=== PATIENT | female | born 1930 | race Caucasian/White ===

== ENCOUNTER 2019-10-23 13:11 | Inpatient (IN) | payer MEDICARE, BC ==
[2019-10-23] MEDS ORDERED: Albuterol Sulfate 2.5 mg/3 ml Neb ONE (13:23)
[2019-10-23] MEDS ORDERED: cefTRIAXone\\ROCEPHIN 1 GM VIAL ONE (13:33)
--- NOTE | 2019-10-23 13:44 | RAD ---
EXAM: CHEST ONE VIEW HISTORY: Shortness of breath. History of recent pneumonia. COMPARISON: None FINDINGS: The cardiac silhouette and pulmonary vasculature are within normal limits. There are emphysematous ch anges seen within the upper lobes with crowding of bronchovascular markings at each lung base and diffuse chronic lung changes. There is mild patchy parenchymal density seen at the left lung base wit h minimal patchy density in the right midlung zone. Findings may be related to bilateral infectious process/pneumonia. There is prominence of the hilar structures which may be related to vascular struc tures, but lymphadenopathy especially on the left versus left hilar mass cannot be entirely excluded. There is diffuse osteopenia. There is irregularity and deformity of the bilateral humeral h eva. Vascular calcifications are seen in the thoracic aorta. IMPRESSION: 1. Patchy airspace opacities at the left lung base and right midlung zone worrisome for pneumonia. Fo llow-up to complete resolution is recommended. 2. Chronic lung changes and evidence of COPD. 3. Nodular prominence left hilar region which is probably related to vascular structures, but lymphad enopathy or mass cannot be entirely excluded. This can also be reevaluated on follow-up exam. 4. Osteopenia with deformity of each humeral head.
[2019-10-23 14:11] LABS: Actual Bicarbonate (HCO3a) 24.5 mEq/L (22-28); Analyzer IN Cardio ER; Base Excess (BEa) -0.6 mEq/L (-2.0 to +3.0); Calcium, Ionized 1.24 mmol/L (1.12-1.30); Carboxyhemoglobin (COHb) 0.3 gm% (0.0-3.0); Hemoglobin (Hb) 10.5 g/dL (12.0-16.0); O2 Tension (PaO2) 64.6 mmHg (> 60.0); Potassium - ABG Lab 3.58 mmol/L (3.70-5.30); pH, Arterial 7.38 (7.35-7.45)
[2019-10-23] MEDS ORDERED: Doxycycline 100 MG CAP PO SCH (14:15)
[2019-10-23 14:17] LABS: Hemoglobin 9.7 g/dL (12.0-16.0); Mean Corpuscular Hemoglobin 31.2 pg (27.0-31.0); Mean Corpuscular Volume 97.7 fL (78.0-98.0); Mean Platelet Volume 8.6 fL (7.4-10.4); Platelet Count 393 thou/uL (130-400); RBC Distribution Width 13.4 % (11.5-14.5)
[2019-10-23 14:21] LABS: Puncture Site RRA
[2019-10-23 14:30] LABS: Band 12 % (5-11); MDiff Complete? YES; Monocytes 7 % (0-10); Neutrophil 81 % (42-75); Nucleated RBC 1 % (0); Platelet Morphology Comment Appears Adequate; Polychromasia SLIGHT = 2-3 cells (100X) (0-2/hpf)
[2019-10-23 14:38] LABS: ALT (SGPT) 25 U/L (8-55); AST (SGOT) 45 U/L (5-34); Albumin 3.4 g/dL (3.4-4.8); Alkaline Phosphatase 109 U/L (40-110); Anion Gap 17 mmol/L (10-20); BUN (Urea Nitrogen) 39 mg/dL (9.8-20.1); Bilirubin, Total 0.6 mg/dL (0.2-1.2); Calc. Creatinine Clearance 0 mL/min (70-130); Calcium 9.8 mg/dL (7.8-10.44); Carbon Dioxide 24 mmol/L (23-31); Chloride 103 mmol/L (98-107); Estimated GFR-MDRD 68; Globulin 3.2 g/dL (2.4-3.5); Glucose 185 mg/dL (83-110); Potassium 3.6 mmol/L (3.5-5.1); Protein, Total 6.6 g/dL (6.0-8.3); Sodium 140 mmol/L (136-145)
[2019-10-23 14:41] LABS: Bilirubin Negative (Negative); Blood, Urine Negative (Negative); Clarity Turbid (Clear); Glucose, Urine (Dipstick) Normal (Negative); Leukocyte Negative Leu/uL (Negative); Nitrite Negative (Negative); Protein, Urine (Dipstick) 50 mg/dL (Neg-Trace); RBC/HPF 0-3 HPF (0-3); Squamous Epithelial 0-3 HPF (0-3); WBC/HPF 0-3 HPF (0-3)
[2019-10-23 14:48] LABS: Bacteria/HPF None Seen HPF (None Seen)
[2019-10-23 15:07] LABS: CKMB 2.5 ng/mL (0-6.6)
[2019-10-23] MEDS ORDERED: Aspirin Chewable 81 MG TAB ONE (16:03)
[2019-10-23] MEDS ORDERED: Ondansetron PF 4 MG/2 ML Vial IVP PRN (16:40)
--- NOTE | 2019-10-23 16:46 | PDOC.HHP ---
Hospitalist HPI - History of Present Illness Shortness of breath History of Present Illness: Ms. Trujillo is an 89 y/o lady with PMH of COPD, HTN, who presents form NH with cough, congestion, and shortness of breath. She reports yesterday to have cough but difficulty producing plegm. She is unsure if had a fever in the halfway. She reportedly was in the halfway after being treated for a pneumonia previously two times. She reportedly has COPD and has placed in NH after having pneumonia in the summer. In the ED, found to be tachypneic, with WBC count of 27k, placed intially on BiPAP, lactic acid of 2.6, CXR suggestive of patchy infiltrate in left lung zone. Hospitalist ROS - Review of Systems Constitutional: denies: fever, chills, sweats, weakness, malaise, other Eyes: denies: pain, vision change, conjunctivae inflammation, eyelid inflammation, redness, other ENT: denies: ear pain, ear discharge, nose pain, nose discharge, nose congestion , mouth pain, mouth swelling, throat pain, throat swelling, other Respiratory: reports: cough, shortness of breath, SOB with excertion. denies: dry, hemoptysis, pleuritic pain, sputum, wheezing, other Cardiovascular: denies: chest pain, palpitations, orthopnea, paroxysmal noc. dyspnea, edema, light headedness, other Gastrointestinal: denies: nausea, vomiting, abdominal pain, diarrhea, constipation, melena, hematochezia, other Genitourinary: denies: dysuria, frequency, incontinence, hematuria, retention, other Musculoskeletal: denies: neck pain, shoulder pain, arm pain, back pain, hand pain, leg pain, foot pain, other Skin: denies: rash, lesions, dary, bruising, other Neurological: denies: weakness, numbness, incoordination, change in speech, confusion, seizures, other Hospitalist History - Past Medical History Cardiac: reports: HTN Pulmonary: reports: COPD, pneumonia [employer] TECHNICIAN: reports: no pertinent history Gastrointestinal: reports: no pertinent history Heme/Onc: reports: no pertinent history Hepatobiliary: reports: no pertinent history Psych: reports: Anxiety Musculoskeletal: reports: no pertinent history Rheumatologic: reports: no pertinent history Infectious Disease: reports: no pertinent history ENT: reports: no pertinent history Renal/: reports: no pertinent history Endocrine: reports: no pertinent history Dermatology: reports: no pertinent history - Past Surgical History Past Surgical History: reports: Appendectomy, Cholecystectomy - Family History Family History: reports: no pertinent history - Social History Smoking Status: Smoker, status unknown Alcohol: reports: None Drugs: reports: none Living Situation: Correction - Exam General Appearance: NAD, awake alert, ill appearing (frail, elderly appearing) Eye: PERRL, anicteric sclera ENT: normocephalic atraumatic, no oropharyngeal lesions, moist mucosa Neck: supple, symmetric, no JVD, no thyromegaly, no lymphadenopathy, no carotid bruit Heart: RRR, no murmur, no gallops, no rubs, normal peripheral pulses Respiratory: no tachypnea, rales, tachypneic (coarse breath sounds ausculated bilaterally) Gastrointestinal: soft, non-tender, non-distended, normal bowel sounds, no palpable masses, no hepatomegaly, no splenomegaly, no bruit Extremities: no cyanosis, no clubbing, no edema Skin: normal turgor, no lesions, no rashes Neurological: cranial nerve grossly intact, normal sensation to touch, no weakness, no focal deficits, no new deficit Musculoskeletal: normal tone, normal strength, no muscle wasting Psychiatric: normal affect, normal behavior, A&O x 3 Hospitalist Results - Labs Result Diagrams: 10/23/19 14:06 10/23/19 14:05 Lab results: WBC 27.0 thou/uL (4.8-10.8) H 10/23/19 14:06 Hgb 9.7 g/dL (12.0-16.0) L 10/23/19 14:06 Hct 30.3 % (36.0-47.0) L 10/23/19 14:06 MCV 97.7 fL (78.0-98.0) 10/23/19 14:06 Plt Count 393 thou/uL (130-400) 10/23/19 14:06 Band Neuts % (Manual) 12 % (5-11) H 10/23/19 14:06 ABG pH 7.38 (7.35-7.45) 10/23/19 14:00 ABG pCO2 42.0 mmHg (35.0-45.0) 10/23/19 14:00 ABG pO2 64.6 mmHg (> 60.0) H 10/23/19 14:00 Sodium 140 mmol/L (136-145) 10/23/19 14:05 Potassium 3.6 mmol/L (3.5-5.1) 10/23/19 14:05 Chloride 103 mmol/L (98-107) 10/23/19 14:05 Carbon Dioxide 24 mmol/L (23-31) 10/23/19 14:05 BUN 39 mg/dL (9.8-20.1) H 10/23/19 14:05 Creatinine 0.80 mg/dL (0.6-1.1) 10/23/19 14:05 Glucose 185 mg/dL (83-110) H 10/23/19 14:05 Lactic Acid 2.6 mmol/L (0.5-2.2) H 10/23/19 14:06 Calcium 9.8 mg/dL (7.8-10.44) 10/23/19 14:05 Total Bilirubin 0.6 mg/dL (0.2-1.2) 10/23/19 14:05 AST 45 U/L (5-34) H 10/23/19 14:05 ALT 25 U/L (8-55) 10/23/19 14:05 Alkaline Phosphatase 109 U/L (40-110) 10/23/19 14:05 CK-MB (CK-2) 2.5 ng/mL (0-6.6) 10/23/19 14:06 Troponin I 0.032 ng/mL (< 0.028) H 10/23/19 14:06 B-Natriuretic Peptide 392.0 pg/mL (0-100) H 10/23/19 14:06 Serum Total Protein 6.6 g/dL (6.0-8.3) 10/23/19 14:05 Albumin 3.4 g/dL (3.4-4.8) 10/23/19 14:05 Urine Ketones Negative mg/dL (Negative) 10/23/19 14:13 Urine Blood Negative (Negative) 10/23/19 14:13 Urine Nitrite Negative (Negative) 10/23/19 14:13 Ur Leukocyte Esterase Negative Smith[place]/uL (Negative) 10/23/19 14:13 Urine RBC 0-3 HPF (0-3) 10/23/19 14:13 Urine WBC 0-3 HPF (0-3) 10/23/19 14:13 Ur Squamous Epith Cells 0-3 HPF (0-3) 10/23/19 14:13 Urine Bacteria None Seen HPF (None Seen) 10/23/19 14:13 - Radiology Interpretation Chest x-ray Status: image reviewed by me, report reviewed by me Hospitalist H&P A/P - Problem (1) Healthcare associated bacterial pneumonia Code(s): J15.9 - UNSPECIFIED BACTERIAL PNEUMONIA Status: Acute (2) COPD exacerbation Code(s): J44.1 - CHRONIC OBSTRUCTIVE PULMONARY DISEASE W (ACUTE) EXACERBATION Status: Acute (3) Hypertension Code(s): I10 - ESSENTIAL (PRIMARY) HYPERTENSION Status: Acute (4) Debility Code(s): R53.81 - OTHER MALAISE Status: Acute (5) Severe sepsis Code(s): A41.9 - SEPSIS, UNSPECIFIED ORGANISM; R65.20 - SEVERE SEPSIS WITHOUT SEPTIC SHOCK Status: Acute (6) Elevated troponin Code(s): R79.89 - OTHER SPECIFIED ABNORMAL FINDINGS OF BLOOD CHEMISTRY Status : Acute Assessment and Plan: due to demand ischemia from sepsis, no formal chest pain - Plan Plan: Admit to telemetry. Likely greater than 2 midnights in evaluation and tx for Severe sepsis/HCAP pneumonia Sepsis procotocol in ED, NS bolus given, continue 100ml/hr. Repeat lactate as per protocol CXR showing LL infiltrate, empiric Vancomycin (dosed as per pharmacy) and Cefepime Follow up blood and sputum culture Continue DuoNebs q4hr Continue [place] Methylpred 40mg IV q8hr for COPD exacerbation Titrate oxygen to 88 to 92%, wean NC accordingly Medication to be reconciled\ DVT Prophyalxis: Lovenox Code Status: DNR, as discussed with patient ACP: Son is vetenarian and is primary decision maker. She wants full treatment for pneumonia. Otherwise DNR if unable to improve or decompensation from illness. Disposition: Admit for pneumonia/sepsis/COPD tx.
--- NOTE | 2019-10-23 17:06 | CT ---
EXAM: CTA of the chest HISTORY: Shortness of breath COMPARISON: None TECHNIQUE: Multiple contiguous axial images were obtained a CTA of the chest with contrast per pulmon faiza embolism protocol. 3-D oblique MIP reformats and direct coronal reformats were performed. FINDINGS: HEART: Normal in size without focal cardiac abnormality. PULMONARY ARTERIES: Normal in caliber without filling defects to suggest pulmonary emboli. MEDIASTINUM: There are enlarged right hilar and mediastinal lymph nodes. Largest lymph node is seen i n the subcarinal location measuring 2.9 cm in size. LUNGS: Severe emphysematous changes are seen in the lungs. Atelectasis versus infiltrate is seen in t he dependent aspect of both lower lobes. PLEURAL SPACE: Small left pleural effusion CHEST WALL SOFT TISSUES: Unremarkable VISUALIZED OSSEOUS STRUCTURES: Degenerative changes in the spine. VISUALIZED SUBDIAPHRAGMATIC STRUCTURES: Unremarkable IMPRESSION: 1. No evidence of pulmonary thromboembolism 2. Bilateral lower lobe atelectasis versus infiltrates with left pleural effusion 3. Severe emphysema 4. Hilar and mediastinal lymphadenopathy is nonspecific and could be secondary to an infectious or ma lignant process.
[2019-10-23 17:45] LABS: Lactic Acid 2.6 mmol/L (0.5-2.2)
[2019-10-23] MEDS: Budesonide 0.5 MG/2 ML NEB INH SCH (19:37)
[2019-10-23] MEDS: Sodium Chloride 0.9% 1,000 ML IV SCH (20:05)
[2019-10-23] MEDS: Vancomycin HCl 750 MG in Sodium Chloride 0.9% 250 ML 250 ML IVPB SCH (20:29)
[2019-10-23] MEDS: Cefepime 2 GM in Sodium Chloride 0.9% 100 ML IVPB SCH (21:55)
[2019-10-23] MEDS: methylPREDNISolone Sod Succ 40 MG VIAL IVP SCH (21:56)
[2019-10-23] MEDS: Acetaminophen 325 MG TAB PO PRN (23:49)
[2019-10-24 05:08] LABS: Anion Gap 13 mmol/L (10-20); BUN (Urea Nitrogen) 28 mg/dL (9.8-20.1); Calc. Creatinine Clearance 44 mL/min (70-130); Calcium 9.4 mg/dL (7.8-10.44); Carbon Dioxide 23 mmol/L (23-31); Chloride 108 mmol/L (98-107); Estimated GFR-MDRD 83; Glucose 149 mg/dL (83-110); Sodium 140 mmol/L (136-145)
[2019-10-24 05:09] LABS: Hemoglobin 9.6 g/dL (12.0-16.0); Mean Corpuscular HGB CONC 31.8 g/dL (32.0-36.0); Mean Corpuscular Hemoglobin 31.5 pg (27.0-31.0); Mean Corpuscular Volume 99.1 fL (78.0-98.0); Mean Platelet Volume 8.8 fL (7.4-10.4); Platelet Count 360 thou/uL (130-400); RBC Distribution Width 13.4 % (11.5-14.5); Red Blood Cell (RBC) Count 3.04 mill/uL (4.20-5.40); White Blood Cell (WBC) Count 31.6 thou/uL (4.8-10.8)
[2019-10-24 05:10] LABS: Band 24 % (5-11); Elliptocytes SLIGHT = 2-5 cells (100X) (0-1/hpf); Hypochromia SLIGHT = 6-15 cells (100X) (0-5/hpf); MDiff Complete? YES; Monocytes 2 % (0-10); Neutrophil 74 % (42-75); Platelet Morphology Comment Appears Adequate
[2019-10-24] MEDS: methylPREDNISolone Sod Succ 40 MG VIAL IVP SCH ×3 (05:29→21:57)
[2019-10-24] MEDS: Sodium Chloride 0.9% 1,000 ML IV SCH ×3 (05:30→17:54)
[2019-10-24] MEDS: Budesonide 0.5 MG/2 ML NEB INH SCH ×2 (07:54→19:32)
[2019-10-24] MEDS: Cefepime 2 GM in Sodium Chloride 0.9% 100 ML IVPB SCH ×2 (08:48→21:57)
[2019-10-24] MEDS: Enoxaparin Sodium 40 MG/0.4 ML SYRINGE SC SCH (08:48)
[2019-10-24] MEDS ORDERED: Benzonatate 100 MG CAP PO PRN (12:00)
--- NOTE | 2019-10-24 12:16 | PDOC.HOSPP ---
- Subjective Encounter Date: 10/24/19 (f/u pneumonia) Encounter Time: 12:15 Subjective: Pt reports her breathing is feeling a little better today. Denies any chest pain, n/v/abd pain. Pt c/o nose feeling sore and she uses an ointment at home for it - does not know the name. - Objective Vital Signs & Weight: Vital Signs (12 hours) Temp Pulse Resp BP Pulse Ox 10/24/19 11:04 98.3 F 90 20 140/68 88 L 10/24/19 07:54 89 20 10/24/19 07:43 88 L 10/24/19 07:31 97.7 F 92 19 141/81 H 88 L 10/24/19 03:17 97.8 F 89 20 123/65 87 L 10/24/19 00:44 90 L Weight Weight 106 lb I&O: 10/23/19 10/24/19 10/25/19 06:59 06:59 06:59 Intake Total 1600 Output Total 400 Balance 1200 Result Diagrams: 10/24/19 04:27 10/24/19 04:27 EKG Reviewed by me: Yes (tele - sinus 80's, pvc's) Hospitalist ROS - Medication Medications: Active Medications Generic Name Dose Route Start Last Admin Trade Name Freq PRN Reason Stop Dose Admin Acetaminophen 650 mg 10/23/19 16:40 10/23/19 23:49 Tylenol PO 650 mg Q4H PRN Administration Headache/Fever/Mild Pain (1-3) Albuterol/Ipratropium 3 ml 10/23/19 19:00 10/24/19 07:54 Duoneb NEB 3 ml [id number] HILARIO Administration Budesonide 0.5 mg 10/23/19 18:30 10/24/19 07:54 Pulmicort Neb Solution INH 0.5 mg BID-RT HILARIO Administration Enoxaparin Sodium 40 mg 10/24/19 09:00 10/24/19 08:48 Lovenox SC 40 mg 0900 HILARIO Administration Cefepime HCl 2 gm/ Sodium 100 mls @ 200 mls/hr 10/23/19 21:00 10/24/19 08:48 Chloride IVPB 100 mls Q12HR HILARIO Administration Vancomycin HCl 750 mg/ Sodium 250 mls @ 250 mls/hr 10/23/19 20:00 10/23/19 20 :29 Chloride IVPB 250 mls 2000 HILARIO Administration Sodium Chloride 1,000 mls @ 100 mls/hr 10/23/19 16:40 10/24/19 12:05 Normal Saline 0.9% IV Not Given .Q10H HILARIO Methylprednisolone Sodium Succinate 40 mg 10/23/19 22:00 10/24/19 05:29 Solu-Medrol IVP 40 mg Q8HR HILARIO Administration - Exam General Appearance: NAD General - other findings: cachectic appearing Heart: RRR, no murmur Respiratory: no wheezes, no rales, no ronchi Respiratory - other findings: poor air movement, some accessory muscle use, Extremities: no cyanosis, no clubbing, no edema Psychiatric: normal affect Hosp A/P (1) Healthcare associated bacterial pneumonia Code(s): J15.9 - UNSPECIFIED BACTERIAL PNEUMONIA Status: Acute (2) COPD exacerbation Code(s): J44.1 - CHRONIC OBSTRUCTIVE PULMONARY DISEASE W (ACUTE) EXACERBATION Status: Acute (3) Dyslipidemia Code(s): E78.5 - HYPERLIPIDEMIA, UNSPECIFIED Status: Chronic (4) Hypertension Code(s): I10 - ESSENTIAL (PRIMARY) HYPERTENSION Status: Chronic Qualifiers: Hypertension type: essential hypertension Qualified Code(s): I10 - Essential (primary) hypertension (5) Severe sepsis Code(s): A41.9 - SEPSIS, UNSPECIFIED ORGANISM; R65.20 - SEVERE SEPSIS WITHOUT SEPTIC SHOCK Status: Acute - Plan HCAP and COPD exac - continue broad spectrum abx - follow cx - continue IV steroids for now - transition to oral as improved - daily PPI nasal saline to nose Resume selective home meds add scheduled bowel med and prn med dvt prophy - lovenox gi prophy - on PPI at home - continue code status DNAR reviewed plan of care with patient/son, no questions or further needs at end of eval Addendum - pt/son d/w nurse that pt is anxious, used to be on fluoxetine 20 mg daily for this but it was stopped in the past. They are requesting that it is restarted. Will order this as well as prn low dose alprazolam for anxiety.
[2019-10-24] MEDS ORDERED: Polyethylene Glycol 3350 17 GM Packet PO PRN (12:19)
[2019-10-24] MEDS ORDERED: Docusate 100 MG CAP PO SCH ×2 (12:45→21:00)
[2019-10-24] MEDS: Acetaminophen 325 MG TAB PO PRN (12:56)
[2019-10-24] MEDS: Atorvastatin Calcium 10 MG TAB PO SCH (20:55)
[2019-10-24] MEDS: guaiFENesin ER 600 MG TAB PO SCH (20:55)
[2019-10-24] MEDS: Vancomycin HCl 750 MG in Sodium Chloride 0.9% 250 ML 250 ML IVPB SCH (20:56)
[2019-10-24] MEDS: FlunisoLIDE 0.025% Nasal Spray 25 ml Bottle EA NARE SCH (20:56)
[2019-10-24] MEDS: ALPRAZolam 0.25 MG TAB PO PRN (20:57)
[2019-10-25] MEDS: Sodium Chloride 0.9% 1,000 ML IV SCH ×2 (04:16→07:59)
[2019-10-25 05:05] LABS: Anion Gap 10 mmol/L (10-20); BUN (Urea Nitrogen) 30 mg/dL (9.8-20.1); Calc. Creatinine Clearance 45 mL/min (70-130); Calcium 9.5 mg/dL (7.8-10.44); Carbon Dioxide 26 mmol/L (23-31); Chloride 111 mmol/L (98-107); Estimated GFR-MDRD 85; Glucose 143 mg/dL (83-110); Sodium 143 mmol/L (136-145)
[2019-10-25 05:38] LABS: Band 11 % (5-11); Elliptocytes SLIGHT = 2-5 cells (100X) (0-1/hpf); Hemoglobin 9.5 g/dL (12.0-16.0); MDiff Complete? YES; Mean Corpuscular HGB CONC 31.7 g/dL (32.0-36.0); Mean Corpuscular Hemoglobin 31.5 pg (27.0-31.0); Mean Corpuscular Volume 99.2 fL (78.0-98.0); Mean Platelet Volume 8.8 fL (7.4-10.4); Monocytes 7 % (0-10); Neutrophil 82 % (42-75); Platelet Count 382 thou/uL (130-400); Platelet Morphology Comment Appears Adequate; RBC Distribution Width 13.3 % (11.5-14.5); Red Blood Cell (RBC) Count 3.03 mill/uL (4.20-5.40); White Blood Cell (WBC) Count 24.9 thou/uL (4.8-10.8)
[2019-10-25] MEDS: methylPREDNISolone Sod Succ 40 MG VIAL IVP SCH ×3 (05:58→21:22)
[2019-10-25] MEDS: Budesonide 0.5 MG/2 ML NEB INH SCH ×2 (06:55→19:18)
[2019-10-25] MEDS: Enoxaparin Sodium 40 MG/0.4 ML SYRINGE SC SCH (07:46)
[2019-10-25] MEDS: Cefepime 2 GM in Sodium Chloride 0.9% 100 ML IVPB SCH ×2 (07:46→21:21)
[2019-10-25] MEDS: Aspirin 81 mg Enteric Coated Tablet PO SCH (07:47)
[2019-10-25] MEDS: FLUoxetine HCl 20 MG CAP PO SCH (07:47)
[2019-10-25] MEDS: guaiFENesin ER 600 MG TAB PO SCH ×2 (07:47→20:12)
[2019-10-25] MEDS: FlunisoLIDE 0.025% Nasal Spray 25 ml Bottle EA NARE SCH ×2 (07:58→20:07)
[2019-10-25] MEDS: Artificial Tears 18 DROP/0.9 ML EA EYE SCH (08:58)
[2019-10-25] MEDS ORDERED: Losartan 25 MG TAB PO SCH (10:45)
[2019-10-25] MEDS ORDERED: Amlodipine 5 MG TAB PO SCH (10:45)
--- NOTE | 2019-10-25 10:51 | PDOC.HOSPP ---
- Subjective Encounter Date: 10/25/19 (f/u COPD exacerbation) Encounter Time: 10:48 Subjective: Pt c/o not having a bm today. Denies n/v. States her breathing is about the same , feels uncomfortable, having a more productive cough. - Objective Vital Signs & Weight: Vital Signs (12 hours) Temp Pulse Resp BP Pulse Ox 10/25/19 07:34 96.8 F L 88 22 H 143/85 H 88 L 10/25/19 06:56 91 L 10/25/19 06:55 84 16 10/25/19 04:05 98.4 F 79 16 161/85 H 90 L 10/25/19 00:29 92 L 10/24/19 23:18 97.3 F L 88 14 147/65 H 90 L Weight Admit Weight 106 lb Weight 114 lb 9.6 oz I&O: 10/24/19 10/25/19 10/26/19 06:59 06:59 06:59 Intake Total 1600 3340 Output Total 400 750 Balance 1200 2590 Result Diagrams: 10/25/19 04:20 10/25/19 04:20 EKG Reviewed by me: Yes (tele - sinus 80's with aberrant beats.) Hospitalist ROS - Medication Medications: Active Medications Generic Name Dose Route Start Last Admin Trade Name Freq PRN Reason Stop Dose Admin Acetaminophen 650 mg 10/23/19 16:40 10/24/19 12:56 Tylenol PO 650 mg Q4H PRN Administration Headache/Fever/Mild Pain (1-3) Albuterol/Ipratropium 3 ml 10/23/19 19:00 10/25/19 06:55 Duoneb NEB 3 ml [id number] HILARIO Administration Alprazolam 0.25 mg 10/24/19 14:25 10/24/19 20:57 Xanax PO 0.25 mg BIDPRN PRN Administration Anxiety Artificial Tears 1 drop 10/25/19 09:00 10/25/19 08:58 Tears Naturale EA EYE 1 drop DAILY HILARIO Administration Aspirin 81 mg 10/25/19 09:00 10/25/19 07:47 Ecotrin PO 81 mg DAILY HILARIO Administration Atorvastatin Calcium 10 mg 10/24/19 21:00 10/24/19 20:55 Lipitor PO 10 mg HS HILARIO Administration Benzonatate 100 mg 10/24/19 12:00 10/24/19 12:56 Tessalon PO 100 mg Q8H PRN Administration Cough Budesonide 0.5 mg 10/23/19 18:30 10/25/19 06:55 Pulmicort Neb Solution INH 0.5 mg BID-RT HILARIO Administration Enoxaparin Sodium 40 mg 10/24/19 09:00 10/25/19 07:46 Lovenox SC 40 mg 0900 HILARIO Administration Flunisolide 2 sprays 10/24/19 21:00 10/25/19 07:58 Nasalide 0.025% EA NARE 2 sprays BID HILARIO Administration Fluoxetine HCl 20 mg 10/25/19 09:00 10/25/19 07:47 Prozac PO 20 mg DAILY HILARIO Administration Guaifenesin 600 mg 10/24/19 21:00 10/25/19 07:47 Mucinex PO 600 mg BID HILARIO Administration Cefepime HCl 2 gm/ Sodium 100 mls @ 200 mls/hr 10/23/19 21:00 10/25/19 07:46 Chloride IVPB 100 mls Q12HR HILARIO Administration Vancomycin HCl 750 mg/ Sodium 250 mls @ 250 mls/hr 10/23/19 20:00 10/24/19 20 :56 Chloride IVPB 250 mls 2000 HILARIO Administration Methylprednisolone Sodium Succinate 40 mg 10/23/19 22:00 10/25/19 05:58 Solu-Medrol IVP 40 mg Q8HR HILARIO Administration Pantoprazole Sodium 40 mg 10/25/19 09:00 10/25/19 07:47 Protonix PO 40 mg DAILY HILARIO Administration - Exam General Appearance: NAD Heart: RRR, no murmur Respiratory - other findings: slightly improved air movement but still poor, no audible w/r/r Gastrointestinal: soft, non-tender, non-distended, normal bowel sounds Extremities: no cyanosis, no clubbing, no edema Psychiatric: normal affect Hosp A/P (1) Healthcare associated bacterial pneumonia Code(s): J15.9 - UNSPECIFIED BACTERIAL PNEUMONIA Status: Acute (2) COPD exacerbation Code(s): J44.1 - CHRONIC OBSTRUCTIVE PULMONARY DISEASE W (ACUTE) EXACERBATION Status: Acute (3) Dyslipidemia Code(s): E78.5 - HYPERLIPIDEMIA, UNSPECIFIED Status: Chronic (4) Hypertension Code(s): I10 - ESSENTIAL (PRIMARY) HYPERTENSION Status: Chronic Qualifiers: Hypertension type: essential hypertension Qualified Code(s): I10 - Essential (primary) hypertension (5) Severe sepsis Code(s): A41.9 - SEPSIS, UNSPECIFIED ORGANISM; R65.20 - SEVERE SEPSIS WITHOUT SEPTIC SHOCK Status: Acute - Plan HCAP and COPD exac - continue broad spectrum abx - follow cx - continue IV steroids for now - transition to oral as improved - possibly tomorrow - daily PPI nasal saline to nose Resume selective home meds add scheduled bowel med and prn med - RN to take her a dose of miralax and lactulose now d/c IVF check echo given severe copd - to see if this is contributing to dyspnea. Pt is not on a beta-iwona HTN - resume home amlodipine and losartan (dose lowered) anxiety - continue prozac and prn low dose alprazolam dvt prophy - lovenox gi prophy - on PPI at home - continue code status DNAR reviewed plan of care with patient/[id number], no questions or further needs at end of eval pt remains at high risk in current presentation Addendum - blood culture - one set with gram positive cocci. Resp cx - gram neg herminio and Staph Aureus
[2019-10-25] MEDS: Vancomycin HCl 750 MG in Sodium Chloride 0.9% 250 ML 250 ML IVPB SCH (20:07)
[2019-10-25] MEDS: Atorvastatin Calcium 10 MG TAB PO SCH (20:12)
[2019-10-25] MEDS: ALPRAZolam 0.25 MG TAB PO PRN (20:12)
[2019-10-25] MEDS: Acetaminophen 325 MG TAB PO PRN (20:12)
[2019-10-26 05:05] VITALS: BMI 23.8
[2019-10-26 05:06] LABS: Anion Gap 9 mmol/L (10-20); BUN (Urea Nitrogen) 38 mg/dL (9.8-20.1); Calc. Creatinine Clearance 46 mL/min (70-130); Calcium 9.6 mg/dL (7.8-10.44); Carbon Dioxide 25 mmol/L (23-31); Chloride 112 mmol/L (98-107); Estimated GFR-MDRD 72; Glucose 156 mg/dL (83-110); Potassium 4.3 mmol/L (3.5-5.1); Sodium 142 mmol/L (136-145)
[2019-10-26 05:15] LABS: Band 6 % (5-11); Hemoglobin 9.7 g/dL (12.0-16.0); Lymphocytes 1 % (21-51); MDiff Complete? YES; Mean Corpuscular HGB CONC 31.1 g/dL (32.0-36.0); Mean Corpuscular Hemoglobin 31.1 pg (27.0-31.0); Mean Platelet Volume 8.6 fL (7.4-10.4); Monocytes 2 % (0-10); Neutrophil 91 % (42-75); Platelet Count 394 thou/uL (130-400); Platelet Morphology Comment Appears Adequate; RBC Distribution Width 13.4 % (11.5-14.5); Red Blood Cell (RBC) Count 3.12 mill/uL (4.20-5.40); White Blood Cell (WBC) Count 21.2 thou/uL (4.8-10.8)
[2019-10-26] MEDS: methylPREDNISolone Sod Succ 40 MG VIAL IVP SCH ×2 (05:41→14:38)
[2019-10-26] MEDS: Budesonide 0.5 MG/2 ML NEB INH SCH ×2 (07:31→18:50)
[2019-10-26] MEDS: guaiFENesin ER 600 MG TAB PO SCH ×2 (08:31→21:20)
[2019-10-26] MEDS: Losartan 25 MG TAB PO SCH (08:31)
[2019-10-26] MEDS: Aspirin 81 mg Enteric Coated Tablet PO SCH (08:31)
[2019-10-26] MEDS: Enoxaparin Sodium 40 MG/0.4 ML SYRINGE SC SCH (08:31)
[2019-10-26] MEDS: Amlodipine 5 MG TAB PO SCH (08:32)
[2019-10-26] MEDS: Cefepime 2 GM in Sodium Chloride 0.9% 100 ML IVPB SCH ×2 (08:32→22:01)
[2019-10-26] MEDS: FLUoxetine HCl 20 MG CAP PO SCH (08:32)
[2019-10-26] MEDS: Artificial Tears 18 DROP/0.9 ML EA EYE SCH (08:34)
[2019-10-26] MEDS: FlunisoLIDE 0.025% Nasal Spray 25 ml Bottle EA NARE SCH ×2 (08:34→22:01)
--- NOTE | 2019-10-26 10:37 | PDOC.HOSPP ---
- Subjective Encounter Date: 10/26/19 Encounter Time: 11:40 Subjective: Patient with severe SOB, hypoxia, decreased responsiveness. Code Green called. Patient responded to high flow O2 and more responsive now. Being transfered to the [facility]. Family ok with trying BiPAP if necessary, but otherwise DNAR. - Objective Vital Signs & Weight: Vital Signs (12 hours) Temp Pulse Resp BP Pulse Ox 10/26/19 08:29 97.2 F L 73 22 H 150/70 H 89 L 10/26/19 07:31 79 16 90 L 10/26/19 03:43 97.4 F L 96 25 H 149/67 H 96 10/26/19 01:21 90 L Weight Admit Weight 106 lb Weight 125 lb 12.8 oz I&O: 10/25/19 10/26/19 10/27/19 06:59 06:59 06:59 Intake Total 3340 350 Output Total 750 200 Balance 2590 150 Result Diagrams: 10/26/19 04:15 10/26/19 04:15 Hospitalist ROS - Review of Systems Constitutional: denies: fever, chills Respiratory: reports: shortness of breath. denies: cough Cardiovascular: denies: chest pain, palpitations Gastrointestinal: denies: nausea, vomiting, abdominal pain - Medication Medications: Active Medications Generic Name Dose Route Start Last Admin Trade Name Freq PRN Reason Stop Dose Admin Acetaminophen 650 mg 10/23/19 16:40 10/25/19 20:12 Tylenol PO 650 mg Q4H PRN Administration Headache/Fever/Mild Pain (1-3) Albuterol/Ipratropium 3 ml 10/23/19 19:00 10/26/19 07:34 Duoneb NEB 3 ml [id number] HILARIO Administration Alprazolam 0.25 mg 10/24/19 14:25 10/25/19 20:12 Xanax PO 0.25 mg BIDPRN PRN Administration Anxiety Amlodipine Besylate 5 mg 10/26/19 09:00 10/26/19 08:32 Norvasc PO 5 mg DAILY HILARIO Administration Artificial Tears 1 drop 10/25/19 09:00 10/26/19 08:34 Tears Naturale EA EYE 1 drop DAILY HILARIO Administration Aspirin 81 mg 10/25/19 09:00 10/26/19 08:31 Ecotrin PO 81 mg DAILY HILARIO Administration Atorvastatin Calcium 10 mg 10/24/19 21:00 10/25/19 20:12 Lipitor PO 10 mg HS HILARIO Administration Benzonatate 100 mg 10/24/19 12:00 10/24/19 12:56 Tessalon PO 100 mg Q8H PRN Administration Cough Budesonide 0.5 mg 10/23/19 18:30 10/26/19 07:31 Pulmicort Neb Solution INH 0.5 mg BID-RT HILARIO Administration Enoxaparin Sodium 40 mg 10/24/19 09:00 10/26/19 08:31 Lovenox SC 40 mg 0900 HILARIO Administration Flunisolide 2 sprays 10/24/19 21:00 10/26/19 08:34 Nasalide 0.025% EA NARE 2 sprays BID HILARIO Administration Fluoxetine HCl 20 mg 10/25/19 09:00 10/26/19 08:32 Prozac PO 20 mg DAILY HILARIO Administration Guaifenesin 600 mg 10/24/19 21:00 10/26/19 08:31 Mucinex PO 600 mg BID HILARIO Administration Cefepime HCl 2 gm/ Sodium 100 mls @ 200 mls/hr 10/23/19 21:00 10/26/19 08:32 Chloride IVPB 100 mls Q12HR HILARIO Administration Vancomycin HCl 750 mg/ Sodium 250 mls @ 250 mls/hr 10/23/19 20:00 10/25/19 20 :07 Chloride IVPB 250 mls 2000 HILARIO Administration Lactulose 20 gm 10/24/19 12:19 10/25/19 11:10 Lactulose PO 20 gm DAILYPRN PRN Administration Constipation Losartan Potassium 50 mg 10/26/19 09:00 10/26/19 08:31 Cozaar PO 50 mg DAILY HILARIO Administration Methylprednisolone Sodium Succinate 40 mg 10/23/19 22:00 10/26/19 05:41 Solu-Medrol IVP 40 mg Q8HR HILARIO Administration Pantoprazole Sodium 40 mg 10/25/19 09:00 10/26/19 08:32 Protonix PO 40 mg DAILY HILARIO Administration - Exam General Appearance: ill appearing Eye: anicteric sclera ENT: moist mucosa Heart: RRR, no murmur, no gallops, no rubs Respiratory: no rales, no ronchi, tachypneic, wheezes Gastrointestinal: soft, non-tender, non-distended, normal bowel sounds Psychiatric - other findings: very hard of hearing, unable to test orientation well due to this Hosp A/P (1) Healthcare associated bacterial pneumonia Code(s): J15.9 - UNSPECIFIED BACTERIAL PNEUMONIA Status: Acute (2) MRSA bacteremia Code(s): R78.81 - BACTEREMIA Status: Acute (3) COPD exacerbation Code(s): J44.1 - CHRONIC OBSTRUCTIVE PULMONARY DISEASE W (ACUTE) EXACERBATION Status: Acute (4) Dyslipidemia Code(s): E78.5 - HYPERLIPIDEMIA, UNSPECIFIED Status: Chronic (5) Hypertension Code(s): I10 - ESSENTIAL (PRIMARY) HYPERTENSION Status: Chronic Qualifiers: Hypertension type: essential hypertension Qualified Code(s): I10 - Essential (primary) hypertension (6) Severe sepsis Code(s): A41.9 - SEPSIS, UNSPECIFIED ORGANISM; R65.20 - SEVERE SEPSIS WITHOUT SEPTIC SHOCK Status: Acute (7) Acute and chronic respiratory failure with hypoxia Code(s): J96.21 - ACUTE AND CHRONIC RESPIRATORY FAILURE WITH HYPOXIA Status: Acute - Plan continue antibiotics, PT/OT, respiratory therapy HCAP and COPD exac - continue broad spectrum abx - MRSA in blood and sputum- on vanc. will have pharmacy dose - continue IV steroids for now - transition to oral as improved - still with high O2 requirement - daily PPI Acute on chronic respiratory failure with hypoxia - Patient found unresponsive with O2 sat 50s this AM, improved with nonrebreather, BP/pulse stable. Son ok with BiPAP so patient transfered to [facility] for bipap, still DNR otherwise nasal saline to nose Resume selective home meds add scheduled bowel med and prn med - RN to take her a dose of miralax and lactulose now d/c IVF ECHO with normal EF HTN - resume home amlodipine and losartan (dose lowered) anxiety - continue prozac and prn low dose alprazolam dvt prophy - lovenox gi prophy - on PPI at home - continue code status DNAR Patient remains critically ill and high chance of decompensation and reviewed plan of care with patient/family at bedside, no questions or further needs at end of eval
[2019-10-26] MEDS: ALPRAZolam 0.25 MG TAB PO PRN (12:40)
--- NOTE | 2019-10-26 14:36 | PQF ---
[place] RICH, JASWANT ROSS MD [id number] [facility]- B03 [id number] CLINICAL DOCUMENTATION IMPROVEMENT CLARIFICATION FORM: ICD-10 Updated PLEASE DO AN ADDENDUM TO THE PROGRESS NOTE WITH ANY DOCUMENTATION UPDATES OR ADDITIONS AND CARRY THROUGH TO DC SUMMARY. THANK YOU. DATE: 10/26/2019 ATTN: DR. Catracho WING Please exercise your independent, professional judgment in responding to the clarification form. Clinical indicators are provided on the bottom of this form for your review. Please check appropriate box(s): [ X ] Acute On Chronic Respiratory Failure: [ X ] with Hypoxia [ ] with Hypercapnia [ ] Acute Respiratory Failure due to: (etiology) [ ] Chronic Respiratory Failure only [ ] with Hypoxia [ ] with Hypercapnia [ ] OTHER [ ] Unable to determine In addition, please specify: Present on Admission (POA): [ X ] Yes [ ] No [ ] Unable to determine For continuity of documentation, please document condition throughout progress notes and discharge summary. Thank You. CLINICAL INDICATORS - SIGNS / SYMPTOMS / LABS / RESULTS AND LOCATION IN 10/23 ED REPORT: PT PRESENTED TO ED VIA EMS FOR SOB, LOW O2 SATURATION,PT REQUIRING INCREASED SUPPLEMENTAL O2 SUPPORT. PMH SIGNIFICANT FOR COPD ON 3L/NC DAILY. RECEIVED 6 DUONEB, TWO IN ROUTE TO ED; FINAL ED PHYSICIAN DX: PNA, COPD EXACERBATION 10/24 O2 SAT 88-94% ON 4-4.5 L/NC 10/25 O2 SAT 88-92% ON 4-4.5 L/NC 10/26 O2 SAT 89-96% ON 4.5-5.0 L/NC RISK: ADVANCED AGE ( 89) DX OF COPD EXACERBATION, DX BACTERIAL PNEUMONIA,SEVERE SEPSIS (H&P/ KRISTIE) TREATMENTS: SUPPLEMENTAL OXYGEN (10/23-PRESENT) CONTINUOUS TELEMETRY MONITORING ( 10/23-PRESENT) Acute Respiratory Failure: ABG pH < 7.35 or > 7.45; Decreased oxygen saturation (<90% room air or < 95% on oxygen); PCO2 > 50 mm Hg; PO2 < 60 mm Hg; Labored or rapid respirations ARDS: Dx Criteria [[place] ARDS]: Respiratory symptoms within one week of a known clinical insult (e.g. shock, infection, surgery, trauma) Bilateral opacities in CXR/Chest CT not due to CHF or fluid THANK YOU! FRANCISCO (This form is maintained as a part of the permanent medical record) 2015 [employer] All Rights Reserved [email or web address] [phone] MTDD
[2019-10-26] MEDS ORDERED: Furosemide 40 MG/4 ML VIAL SLOW IVP SCH (15:15)
--- NOTE | 2019-10-26 16:39 | CON ---
DATE OF CONSULTATION: 10/26/2019 SERVICE: Pulmonary Medicine. REASON FOR CONSULTATION: [facility] patient. HISTORY OF PRESENT ILLNESS: The patient is an 89-year-old white female with a past medical history significant for COPD and advanced emphysema. She is on oxygen at home. Recently, she was doing poorly in [place]. Her family moved her here to get closer, but when she stopped having moved around, she relies completely on her family and got to the point, where she had a hard time moving about. She needed significant assistance. It was more than family could provide and she was subsequently placed in a correction about a month ago. At that location, she has had a fairly dramatic deterioration in function. She can get out of bed into a wheelchair with significant assistance. She can then use the wheelchair to get around on her own. That being said, minimal activity causes severe shortness of breath and so she more or less avoided altogether. She was doing well until right around . At that point, she started having increasing shortness of breath and cough. She was brought to the Emergency Department and identified as having bilateral pneumonia in an aspiration distribution. She was placed in the hospital on the . She was given antibiotics for the last 2 days, but developed increasing respiratory failure and hypoxemia. She was a subject of a code green. She was subsequently transitioned out of the telemetry unit to the [facility]. High- flow nasal cannula was placed. The patient is deaf and has a hard time understanding anything that I am saying or requesting. She spends much of the time breathing. She does not appear to be in any distress. Otherwise, there has been no interval change to her condition. PAST MEDICAL HISTORY: 1. COPD. 2. Chronic hypoxic respiratory failure. 3. Hypertension. 4. Anxiety disorder. 5. Gastroesophageal reflux disease. 6. Osteoarthritis. PAST SURGICAL HISTORY: 1. Appendectomy. 2. Cholecystectomy. FAMILY HISTORY: Noncontributory. SOCIAL HISTORY: She smoked a pack of cigarettes on a daily basis for over 50 years. She quit 15 years ago. She has no exposure to chemicals, dust, asbestos, or tuberculosis otherwise. ALLERGIES: NO KNOWN DRUG ALLERGIES. MEDICATIONS: List of her inpatient medications was reviewed. No updates were made at this time. REVIEW OF SYSTEMS: This cannot be obtained because the patient has severe deafness. PHYSICAL EXAMINATION: VITAL SIGNS: Afebrile, pulse 92, blood pressure 146/63, respirations 19, and saturation 92% on 50% oxygen delivered via high-flow nasal cannula. GENERAL: The patient is awake and alert, in no apparent distress. LUNGS: Reduced air entry. No prolonged expiratory phase is present. There are rhonchi, crackles, and wheezing all present. HEART: Normal rate. Regular. ABDOMEN: Soft, nontender, and nondistended. Bowel sounds are positive. MUSCULOSKELETAL: No cyanosis or clubbing. There are trace pitting in the bilateral lower extremities. NEUROLOGIC: Grossly nonfocal. LABORATORY DATA: WBC 21.2 and downtrending, hemoglobin 9.7 and stable, and platelets 394,000. A pH of 7.38, pCO2 of 42, and pO2 of 65. Creatinine 0.76. BUN 38. Basic metabolic profile is otherwise unremarkable, sodium 142. Urinalysis is unremarkable. Sputum is growing MRSA as well as Pseudomonas aeruginosa. Sensitivities on the Pseudomonas are currently pending. Blood culture is growing Staph aureus in 1 out of 2. Urine cultures negative to-date. Influenza A and B are unremarkable. IMAGIN. Echocardiogram demonstrates a preserved ejection fraction, moderate mitral regurgitation. 2. CTA of the chest demonstrates no evidence of a pulmonary embolism. There is horrendous emphysematous changes throughout bilateral lung moreno and bibasilar consolidating changes. I do not appreciate much in the way of an effusion. ASSESSMENT: 1. Acute on chronic hypoxic respiratory failure. 2. Chronic obstructive pulmonary disease with acute exacerbation. 3. Health care associated pneumonia, likely secondary to aspiration related disease. 4. Debility, fairly advanced. DISCUSSION AND PLAN: We will continue supportive care including steroids, antibiotics, and nebulized medications. I will introduce a dose of Lasix now and tomorrow morning. Steroids will be de-escalated to once daily. Broad-spectrum antibiotics will be continued for the time being. We will need to follow up on the sensitivities of the Pseudomonas. Cough suppressing medications like Tessalon Perles will be interrupted. This patient remains critically ill. If things get worse, she will be unlikely to survive this hospital stay. The patient's family seems to be fairly appreciative of our current situation. 70 minutes have been devoted to this patient in various activities. I personally reviewed all imaging studies and laboratory data noted within this document. For fifty percent of this time, I was interacting with the patient at the bedside or coordinating care with the care team. For the remainder of the time I was immediately available to the patient in the hospital unit. Job ID: [id number] MTDD
[2019-10-26] MEDS ORDERED: Vancomycin HCl 750 MG in Sodium Chloride 0.9% 250 ML 250 ML IVPB SCH (18:00)
[2019-10-26 18:45] VITALS: BP 103/52
[2019-10-26] MEDS: Atorvastatin Calcium 10 MG TAB PO SCH (21:20)
--- NOTE | 2019-10-26 21:30 | CON ---
DATE OF CONSULTATION: 10/26/2019 REASON FOR CONSULTATION: Bacteremia, pneumonia. HISTORY OF PRESENT ILLNESS: An 89-year-old first admission to [facility] who has a longstanding history of COPD, prior smoking and oxygen dependency in the home setting for many years now. The patient had been living in [place] and family brought her over here, because of her needing more assistance for care. The patient had to be admitted to a local correction and the plan was to keep her in the correction. Recently, she had an episode of pneumonia treated with Rocephin and Augmentin at the correction with improvement and then now worsening cough. She had some fever as well as recurrence. Initial findings included blood pressure of 117/74, pulse 105, temperature 97.7, respiratory rate 23, O2 saturation 95 on a BiPAP mask. The exam showed a frail elderly woman, tachypneic and uncomfortable at rest. There was evidence of wheezing, both right and left hemithorax. Breath sounds were diminished in the left lower lobe base. Her initial impression was pneumonia with leukocytosis. The patient has chest CT, which showed bibasilar infiltrates. The patient was given vancomycin and cefepime and now we have one set of blood cultures with MRSA, also with MRSA and sputum together with Pseudomonas aeruginosa, moderate gram-positive cocci in clusters in the Gram stain. Currently, Ms. Trujillo is obtunded. She will open her eyes intermittently, but does not answer questions. She obviously has some hearing impairment. She has not had any diarrhea, no seizure activity. Continues to cough intermittently. According to the son, she is getting tired and there might be an interest in palliative care. PAST MEDICAL HISTORY: COPD, chronic home O2 dependency, prior episode of pneumonia, treated recently. PAST SURGICAL HISTORY: Appendectomy and cholecystectomy. FAMILY HISTORY: Noncontributory. SOCIAL HISTORY: Positive smoking history. MEDICATIONS: She had been living in [place] and moved to be with family, because of decline in her functional capacity and ability to care for self. PHYSICAL EXAMINATION: VITAL SIGNS: T-max 98.2, now 97.2, blood pressure 130/50, pulse 71, respirations 26, O2 saturation 90% with high-flow oxygen supplementation. SKIN: With an area of very mild pressure damage to the presacral skin. The patient has a peripheral IV access and she is incontinent, in a diaper. HEENT: Ocular movements are conjugate. Sclerae white. Pale conjunctivae. Pupils are equal, about 2 mm and reactive. No jugular vein distention. LUNGS: With diminished breath sounds. Poor air excursion. No wheezing or crackles noted. S1, S2. Regular rate. No S3. ABDOMEN: Soft, not distended or tender. No ascites. No bladder distention. EXTREMITIES: No joint inflammatory activity. 1+ edema in lower extremities. Pulses are 1+ in dorsalis pedis. Cap refill is normal. LABORATORY DATA: White cell count is 27, now is 21,000, hemoglobin 9.7, platelets 394, 91% neutrophils, bands were 12, now down to 6. Chemistry: Her creatinine is 0.67, sodium 142, AST 45. Other liver enzymes normal. Troponin 0.032. Albumin 3.4. Urinalysis with 0-3 wbcs, 50 protein. She is currently on methylprednisolone and vancomycin 750 once daily. ASSESSMENT: 1. Chronic obstructive pulmonary disease, home oxygen dependent. 2. Recent pneumonia, now with methicillin-resistant Staphylococcus aureus pneumonia with bacteremia, transient. DISCUSSION: We will need to obtain a vancomycin trough level in next dose and then adjust the dosing interval accordingly as well as the vancomycin quantity administered. The MRSA ESTRELLITA is quite low at 0.5 and she should respond to treatment, although there is an emphasis on conservative management and avoiding more aggressive interventions. In that regard, if in the next 12 to 48 hours, she does not improve, I believe the family would be inclined to consult palliative care. Other sites of involvement are not apparent at this time. She does not have any devices and no back pain. Job ID: [id number] [facility]
[2019-10-27] MEDS: ALPRAZolam 0.25 MG TAB PO PRN (04:32)
[2019-10-27] MEDS: Budesonide 0.5 MG/2 ML NEB INH SCH (07:26)
[2019-10-27 07:30] VITALS: TEMP 97.6
[2019-10-27] MEDS ORDERED: methylPREDNISolone Sod Succ 40 MG VIAL IVP SCH (09:00)
[2019-10-27] MEDS: Cefepime 2 GM in Sodium Chloride 0.9% 100 ML IVPB SCH (09:20)
[2019-10-27] MEDS: FlunisoLIDE 0.025% Nasal Spray 25 ml Bottle EA NARE SCH (09:20)
[2019-10-27] MEDS: Artificial Tears 18 DROP/0.9 ML EA EYE SCH (09:20)
[2019-10-27] MEDS: FLUoxetine HCl 20 MG CAP PO SCH ×2 (09:21→11:00)
[2019-10-27] MEDS: Enoxaparin Sodium 40 MG/0.4 ML SYRINGE SC SCH (09:21)
[2019-10-27] MEDS: Aspirin 81 mg Enteric Coated Tablet PO SCH ×2 (09:21→11:00)
[2019-10-27] MEDS: guaiFENesin ER 600 MG TAB PO SCH ×2 (09:21→11:00)
[2019-10-27] MEDS: Losartan 25 MG TAB PO SCH ×2 (09:21→11:00)
[2019-10-27] MEDS: Amlodipine 5 MG TAB PO SCH ×2 (09:21→10:59)
--- NOTE | 2019-10-27 09:32 | PDOC.HOSPP ---
- Subjective Encounter Date: 10/27/19 Encounter Time: 11:00 Subjective: Patient deteriorated overnight. Now not talkative, with stimulation she did wake up enough to say "I want to go home." Son wants to transition to comfort care as patient was insistent on going home yesterday before became more confused. Plan is to withdraw high flow O2 after morphine and ativan for comfort. - Objective Vital Signs & Weight: Vital Signs (12 hours) Temp Pulse Resp Pulse Ox 10/27/19 09:21 82 10/27/19 07:30 97.6 F 10/27/19 07:26 82 24 H 10/27/19 03:27 98.0 F 10/27/19 00:03 97.6 F 10/26/19 23:22 76 20 92 L Weight Admit Weight 106 lb Weight 125 lb 12.8 oz Most Recent Monitor Data Heart Rate from ECG 76 NIBP 158/90 NIBP BP-Mean 112 Respiration from ECG 18 SpO2 91 I&O: 10/26/19 10/27/19 10/28/19 06:59 06:59 06:59 Intake Total 350 470 Output Total 200 1640 Balance 150 -1170 Result Diagrams: 10/26/19 04:15 10/26/19 04:15 Additional Labs: Accuchecks 10/26/19 11:32 POC Glucose 215 H Hospitalist ROS - Review of Systems ROS unobtainable: due to mental status - Medication Medications: Active Medications Generic Name Dose Route Start Last Admin Trade Name Freq PRN Reason Stop Dose Admin Acetaminophen 650 mg 10/23/19 16:40 10/25/19 20:12 Tylenol PO 650 mg Q4H PRN Administration Headache/Fever/Mild Pain (1-3) Albuterol/Ipratropium 3 ml 10/23/19 19:00 10/27/19 07:26 Duoneb NEB 3 ml [id number] HILARIO Administration Alprazolam 0.25 mg 10/24/19 14:25 10/27/19 04:32 Xanax PO 0.25 mg BIDPRN PRN Administration Anxiety Amlodipine Besylate 5 mg 10/26/19 09:00 10/27/19 09:21 Norvasc PO 5 mg DAILY HILARIO Administration Artificial Tears 1 drop 10/25/19 09:00 10/27/19 09:20 Tears Naturale EA EYE 1 drop DAILY HILARIO Administration Aspirin 81 mg 10/25/19 09:00 10/27/19 09:21 Ecotrin PO 81 mg DAILY HILARIO Administration Atorvastatin Calcium 10 mg 10/24/19 21:00 10/26/19 21:20 Lipitor PO 10 mg HS HILARIO Administration Budesonide 0.5 mg 10/23/19 18:30 10/27/19 07:26 Pulmicort Neb Solution INH 0.5 mg BID-RT HILARIO Administration Enoxaparin Sodium 40 mg 10/24/19 09:00 10/27/19 09:21 Lovenox SC 40 mg 0900 HILARIO Administration Flunisolide 2 sprays 10/24/19 21:00 10/27/19 09:20 Nasalide 0.025% EA NARE 2 sprays BID HILARIO Administration Fluoxetine HCl 20 mg 10/25/19 09:00 10/27/19 09:21 Prozac PO 20 mg DAILY HILARIO Administration Guaifenesin 600 mg 10/24/19 21:00 10/27/19 09:21 Mucinex PO 600 mg BID HILARIO Administration Cefepime HCl 2 gm/ Sodium 100 mls @ 200 mls/hr 10/23/19 21:00 10/27/19 09:20 Chloride IVPB 100 mls Q12HR HILARIO Administration Vancomycin HCl 750 mg/ Sodium 250 mls @ 250 mls/hr 10/26/19 18:00 10/26/19 18 :33 Chloride IVPB 250 mls 1800 HILARIO Administration Lactulose 20 gm 10/24/19 12:19 10/25/19 11:10 Lactulose PO 20 gm DAILYPRN PRN Administration Constipation Losartan Potassium 50 mg 10/26/19 09:00 10/27/19 09:21 Cozaar PO 50 mg DAILY HILARIO Administration Methylprednisolone Sodium Succinate 40 mg 10/27/19 09:00 10/27/19 09:20 Solu-Medrol IVP 40 mg DAILY HILARIO Administration Pantoprazole Sodium 40 mg 10/25/19 09:00 10/27/19 09:21 Protonix PO 40 mg DAILY HILARIO Administration - Exam General Appearance: ill appearing Heart: RRR Respiratory: rales Respiratory - other findings: increased WOB Gastrointestinal: soft, non-tender Psychiatric: not oriented, somnolent Hosp A/P (1) Healthcare associated bacterial pneumonia Code(s): J15.9 - UNSPECIFIED BACTERIAL PNEUMONIA Status: Acute (2) MRSA bacteremia Code(s): R78.81 - BACTEREMIA Status: Acute (3) COPD exacerbation Code(s): J44.1 - CHRONIC OBSTRUCTIVE PULMONARY DISEASE W (ACUTE) EXACERBATION Status: Acute (4) Dyslipidemia Code(s): E78.5 - HYPERLIPIDEMIA, UNSPECIFIED Status: Chronic (5) Hypertension Code(s): I10 - ESSENTIAL (PRIMARY) HYPERTENSION Status: Chronic Qualifiers: Hypertension type: essential hypertension Qualified Code(s): I10 - Essential (primary) hypertension (6) Severe sepsis Code(s): A41.9 - SEPSIS, UNSPECIFIED ORGANISM; R65.20 - SEVERE SEPSIS WITHOUT SEPTIC SHOCK Status: Acute (7) Acute and chronic respiratory failure with hypoxia Code(s): J96.21 - ACUTE AND CHRONIC RESPIRATORY FAILURE WITH HYPOXIA Status: Acute - Plan Transition to comfort care Appreciate Palliative care assistance Can move out of the MICU Consult Inpatient Hospice if patient doesn't pass quickly
[2019-10-27] MEDS ORDERED: Morphine 2 MG/ML SYRINGE SLOW IVP PRN (10:52)
[2019-10-27] MEDS ORDERED: Scopolamine 1.5 mg/72 hour Patch TD SCH (11:00)
--- NOTE | 2019-10-27 11:53 | PDOC.PALCO ---
Palliative Care Consult - Consult Details Requesting Physician: Dr Duncan Reason for Consult: goals of care, family support, complex decision-making Family Members Present: Patient son and daughter in law - Pertinent HPI 89 year old female who was transported for the snf she resides at with shortness of breath, cough, congestion via EMS. Longstanding history of COPD and transitioned to the snf after hospitalizations for pnumonia the summer. Son reports continued decline. Evaluation in the emergency room patient was found to have an elevated white count, and required BiPap secondary to respiratory distress. Admitted to the [facility] for medical management. - Social History Smoking Status: Former smoker Smoking: cigarettes Alcohol Use: none Drug Use History: none Living Situation: snf resident - Medications MAR Reviewed: Yes - Allergies Allergies/Adverse Reactions: Allergies Allergy/AdvReac Type Severity Reaction Status Date / Time No Known Drug Allergies Allergy Verified 10/23/19 13:59 - Subjective high flow o2, labored respirations. Patient awake, alert but unable to communicate other than shaking her head secondary to pronounced respiratory compromise. Family at bedside. - ROS Constitutional: weakness Respiratory: shortness of breath Cardiology: other (Denies chest pain ) Skin: dry Psychological: restless - Objective Vital Signs: Vital Signs - Most Recent Temp Pulse Resp BP Pulse Ox 97.6 F 82 24 H 103/52 L 91 L 10/27/19 07:30 10/27/19 10:59 10/27/19 07:26 10/26/19 11:26 10/27/19 08:00 Palliative Performance Scale: 30 - Physical Exam Constitutional: ill appearing, moderate distress HEENT: EOMI, moist MMs, sclera anicteric Respiratory: accessory muscle use, labored respirations, tachypnea Deviation from normal: Adventicious lung sounds, diminished to bases Cardiovascular: irregular Gastrointestinal: non-tender, no distention, positive bowel sounds Musculoskeletal: pulses present Neurology: moves all 4 limbs Skin: bruising, fragile Deviation from normal: anxious - Problem List (1) Palliative care encounter Code(s): Z51.5 - ENCOUNTER FOR PALLIATIVE CARE Current Visit: Yes Status: Acute (2) Physical deconditioning Code(s): R53.81 - OTHER MALAISE Current Visit: Yes Status: Acute (3) Acute and chronic respiratory failure with hypoxia Code(s): J96.21 - ACUTE AND CHRONIC RESPIRATORY FAILURE WITH HYPOXIA Current Visit: Yes Status: Acute (4) COPD exacerbation Code(s): J44.1 - CHRONIC OBSTRUCTIVE PULMONARY DISEASE W (ACUTE) EXACERBATION Current Visit: Yes Status: Acute - Plan/Recommendations Plan: Visited with patient and her son. Son conveys that the patient is tired, and wishes to seek comfort care at this time. Patient nods in response. Revisited disease process and trajectory with continued decline. Will D/C all medications and transition to comfort medications. Patient requesting to be removed from high flow o2. May consider Hospice care this afternoon. Communicated with Dr Duncan. [50] minutes spent on this encounter with >50% of the time in counseling and coordination of care. Thank you for this very appropriate consult.
[2019-10-27] MEDS ORDERED: Lorazepam 2 MG/ML VIAL SLOW IVP SCH (12:00)
[2019-10-27] MEDS ORDERED: Atropine Sulfate 1% Ophth Soln 5 ml Bottle PO PRN (12:00)
--- NOTE | 2019-10-28 02:28 | DIS ---
DATE OF ADMISSION: 10/23/2019 DATE OF DISCHARGE: 10/27/2019 DATE OF : 10/27/2019. TIME OF : 12:40 p.m. CAUSE OF : MRSA pneumonia with resulting severe sepsis and hypoxic respiratory failure. CONTRIBUTING FACTORS: 1. COPD. 2. Chronic respiratory failure with hypoxia. Smoking contribution status is unknown. SUMMARY OF HOSPITAL COURSE: This is an 89-year-old lady with a history of COPD and previous pneumonias. She came in with cough and shortness of breath. She was found to be tachypneic in the emergency room with an elevated white blood cell count, initially had to be placed on BiPAP. She had an elevated lactic acid. Chest x-ray showed pneumonia. The patient had sputum and blood cultures, both of which grew back MRSA. The patient was on broad-spectrum antibiotics including vancomycin; however, she continued to deteriorate in the hospital. Her oxygen saturations kept dropping. She had to be moved to the [facility] for high-flow oxygen; however, she and her son, who is her medical power of business attorney had determined that she was a do not attempt resuscitation. They were willing to try a day on the high-flow oxygen to see if she would improve; however, she deteriorated further and became confused. She did express on the day of her that she just wanted to go home and did not want further treatment. Her son was in agreement with this after talking to Palliative Care and so she was switched to comfort care measures only. The high-flow oxygen was discontinued. She was given medications for comfort and then she . Her body is being discharged to the home. Job ID: [id number]
== END 2019-10-27 14:21 | disposition expired | DRG 871 ==
LOC: ERS 13:11 → 2NO 18:13 → IMCU/EMU 10-26 11:49
PROVIDERS: ADMIT Internal Medicine; ATTEND Internal Medicine
PROC: 5A09357 Assistance with Respiratory Ventilation, Less than 24 Consecutive Hours, Continuous Positive Airway Pressure (ICD-10-PCS; principal; 2019-10-27)
DX: A41.02 Sepsis due to Methicillin resistant Staphylococcus aureus (principal); J96.21 Acute and chronic respiratory failure with hypoxia; J15.212 Pneumonia due to Methicillin resistant Staphylococcus aureus; I24.8 Other forms of acute ischemic heart disease; J44.0 Chronic obstructive pulmonary disease with (acute) lower respiratory infection; J44.1 Chronic obstructive pulmonary disease with (acute) exacerbation; R65.20 Severe sepsis without septic shock; I10 Essential (primary) hypertension; Z66 Do not resuscitate; Z51.5 Encounter for palliative care; R53.81 Other malaise; F41.9 Anxiety disorder, unspecified; M06.9 Rheumatoid arthritis, unspecified; K21.9 Gastro-esophageal reflux disease without esophagitis; M19.90 Unspecified osteoarthritis, unspecified site; H91.90 Unspecified hearing loss, unspecified ear; E78.5 Hyperlipidemia, unspecified; I34.0 Nonrheumatic mitral (valve) insufficiency; Z90.49 Acquired absence of other specified parts of digestive tract; Z89.431 Acquired absence of right foot; Z90.710 Acquired absence of both cervix and uterus; Z99.81 Dependence on supplemental oxygen; Z87.891 Personal history of nicotine dependence; Z87.01 Personal history of pneumonia (recurrent)
CPT/HCPCS: 36415; 36416; 71045; 71275; 80048; 80053; 81003; 81015; 82553; 82805; 83605; 83880; 84484; 85025; 87040; 87070; 87077; 87086; 87149; 87186; 87205; 87804; 93005; 93306; 94640; 94644; 94660; 94760; A4353; J0692; J0696; J1650; J1940; J2060; J2270; J2920; J3370; J3490; J7050; J7611; J7620; J7626